=== PATIENT | female | born 1955 | race Caucasian/White ===

== ENCOUNTER → 2018-04-25 15:19 | Outpatient (CLI) | payer OTHER, SELFPAY ==
--- NOTE | 2018-04-25 | DI.MG.S_ITS ---
BILATERAL DIGITAL SCREENING MAMMOGRAM 3D/2D WITH CAD: 04/25/2018 CLINICAL: Routine screening. Comparison is made to exams dated: 01/04/2017 mammogram, 09/16/2014 mammogram, and 09/11/2013 mammogram - [facility]. The tissue of both breasts is heterogeneously dense. This may lower the sensitivity of mammography. Current study was also evaluated with a Computer Aided Detection (CAD) system. There is irregular equal density architectural distortion with an indistinct margin in the left breast central to the nipple anterior depth. No other significant masses, calcifications, or other findings are seen in either breast. IMPRESSION: INCOMPLETE: NEEDS ADDITIONAL IMAGING EVALUATION The irregular equal density architectural distortion in the left breast is indeterminate. Mediolateral and spot compression views as well as additional views with possible ultrasound are recommended. This exam was interpreted at Station ID: [id number]. NOTE: For mammograms, a report in lay terms will be sent to the patient. Approximately 15% of breast malignancies will not be visualized mammographically. In the management of a palpable breast mass, a negative mammogram must not discourage biopsy of a clinically suspicious lesion. Electronically Signed By: Kwadwo suarez/liz:04/25/2018 19:52:27 letter sent: Additional Imaging Needed ACR BI-RADS Category 0: Incomplete 3340F
== END ==
PROVIDERS: PCP Physician Assistant; Visit Provider Physician Assistant
DX: Z12.31 Encounter for screening mammogram for malignant neoplasm of breast (principal)
CPT/HCPCS: 77063; 77067

== ENCOUNTER → 2018-05-08 07:28 | Outpatient (CLI) | payer OTHER, SELFPAY ==
--- NOTE | 2018-05-08 | DI.MG.S_ITS ---
UNILATERAL LEFT DIGITAL DIAGNOSTIC MAMMOGRAM 3D/2D WITH ADDITIONAL VIEWS: 05/08/2018 CLINICAL: Additional evaluation requested from prior study. Comparison is made to exams dated: 04/25/2018 mammogram, 01/04/2017 mammogram, and 09/16/2014 mammogram - [facility]. The tissue of the left breast is heterogeneously dense. This may lower the sensitivity of mammography. Previously identified possible irregular equal density architectural distortion in the left breast central to the nipple anterior depth on comparison screening mammograms resolves with additional views. No significant masses, calcifications, or other findings are seen in the breast. IMPRESSION: INCOMPLETE: NEEDS ADDITIONAL IMAGING EVALUATION Previously identified possible irregular equal density architectural distortion in the left breast central to the nipple anterior depth on comparison screening mammograms resolves with additional views. A targeted ultrasound is recommended for further evaluation, and will be performed immediately following this exam. This exam was interpreted at Station ID: [id number]. NOTE: For mammograms, a report in lay terms will be sent to the patient. Approximately 15% of breast malignancies will not be visualized mammographically. In the management of a palpable breast mass, a negative mammogram must not discourage biopsy of a clinically suspicious lesion. Electronically Signed By: Nils Crum M.D. ecl/:05/08/2018 09:00:23 letter sent: Additional Imaging Needed ACR BI-RADS Category 0: Incomplete 3340F
--- NOTE | 2018-05-08 | DI.US.S_ITS ---
ULTRASOUND OF LEFT BREAST: 05/08/2018 CLINICAL: Patient returns today to evaluate a possible distortion in the left breast. Comparison is made to exams dated: 05/08/2018 mammogram, 04/25/2018 mammogram, 01/04/2017 mammogram, and 09/16/2014 mammogram - [facility]. Real-time and Doppler ultrasound of the left breast were performed. Ibarra scale images of the real-time examination were reviewed. Targeted ultrasound was performed of the left breast central to the nipple. No underlying breast mass or abnormality is identified. There is no ultrasound correlate for the previously identified possible architectural distortion in the left breast central to the nipple on comparison screening mammograms that resolved with additional diagnostic views. IMPRESSION: NEGATIVE No sonographic or mammographic evidence of malignancy in the imaged left breast. Return to annual screening mammography is recommended, next due in April 2019. The patient is advised to monitor her breasts and to return sooner for re-evaluation should anything grow or change. This exam was interpreted at Station ID: [id number]. Electronically Signed By: Nils Crum M.D. ecl/:05/08/2018 09:09:22 letter sent: Normal Exam Ultrasound BI-RADS: 1 Negative
== END ==
PROVIDERS: PCP Physician Assistant; Visit Provider Physician Assistant
DX: R92.8 Other abnormal and inconclusive findings on diagnostic imaging of breast (principal)
CPT/HCPCS: 76642; 77065; G0279

== ENCOUNTER → 2019-05-29 11:40 | Outpatient (CLI) | payer OTHER, SELFPAY ==
--- NOTE | 2019-05-29 | DI.RAD.S_ITS ---
PROCEDURE: XR LUMBAR SPINE 2-3V INDICATIONS: LOW BACK PAIN TECHNIQUE: 2 views of the lumbar spine were acquired. COMPARISON: None. FINDINGS: Bones: 5 [id number] vertebrae are present. There is normal bony alignment. No vertebral body compression fractures. No suspicious bony lesions. There is a moderate degree of degenerative disc disease at L5-S1 with a similar degree of facet osteoarthritis at L4-5 and especially L5-S1. Spinal and foraminal stenosis at the lower third of the lumbosacral spine may be present and therefore followup by MR scanning may be warranted. Soft tissues: Overlying bowel gas pattern is normal. No suspicious soft tissue calcifications. IMPRESSION: L4-L5 relatively mild degenerative disc disease and mild to moderate facet osteoarthritis. L5-S1 moderate degenerative disc disease and facet osteoarthritis to the degree that inal and foraminal stenosis may be associated. Dictated by: Marlon Elizalde M.D. on 05/29/2019 at 13:23 Approved by: Marlon Elizalde M.D. on 05/29/2019 at 13:24
== END ==
PROVIDERS: PCP Student in an Organized Health Care Education/Training Program; Visit Provider Chiropractor
DX: M54.5 Low back pain (principal); M99.09 Segmental and somatic dysfunction of abdomen and other regions; M51.36 Other intervertebral disc degeneration, lumbar region; M51.37 Other intervertebral disc degeneration, lumbosacral region; M47.816 Spondylosis without myelopathy or radiculopathy, lumbar region; M47.817 Spondylosis without myelopathy or radiculopathy, lumbosacral region
CPT/HCPCS: 72100

== ENCOUNTER → 2019-06-06 12:55 | Outpatient (CLI) | payer OTHER, SELFPAY ==
--- NOTE | 2019-06-06 | DI.MG.S_ITS ---
BILATERAL DIGITAL SCREENING MAMMOGRAM 3D/2D WITH CAD: 06/06/2019 CLINICAL: Routine screening. Comparison is made to exams dated: 04/25/2018 mammogram, 01/04/2017 mammogram, 08/29/2013 mammogram, 08/22/2010 mammogram, 05/08/2018 mammogram, and 09/16/2014 mammogram - [facility]. The tissue of both breasts is heterogeneously dense. This may lower the sensitivity of mammography. Current study was also evaluated with a Computer Aided Detection (CAD) system. There is a biopsy clip in the left breast. No significant masses, calcifications, or other findings are seen in either breast. There has been no significant interval change. IMPRESSION: NEGATIVE There is no mammographic evidence of malignancy. A 1 year screening mammogram is recommended. This exam was interpreted at Station ID: [id number]. NOTE: For mammograms, a report in lay terms will be sent to the patient. Approximately 15% of breast malignancies will not be visualized mammographically. In the management of a palpable breast mass, a negative mammogram must not discourage biopsy of a clinically suspicious lesion. Electronically Signed By: Surya wolf/liz:06/06/2019 14:41:43 letter sent: Normal Exam ACR BI-RADS Category 1: Negative [id number]
== END ==
PROVIDERS: PCP Student in an Organized Health Care Education/Training Program; Visit Provider Student in an Organized Health Care Education/Training Program
DX: Z12.31 Encounter for screening mammogram for malignant neoplasm of breast (principal)
CPT/HCPCS: 77063; 77067

== ENCOUNTER → 2020-06-08 11:02 | Outpatient (CLI) | payer OTHER, SELFPAY ==
--- NOTE | 2020-06-08 | DI.MG.S_ITS ---
BILATERAL DIGITAL SCREENING MAMMOGRAM 3D/2D WITH CAD: 06/08/2020 CLINICAL: Routine screening. Comparison is made to exams dated: 06/06/2019 mammogram, 05/08/2018 mammogram, and 04/25/2018 mammogram - [facility]. The tissue of both breasts is heterogeneously dense. This may lower the sensitivity of mammography. Current study was also evaluated with a Computer Aided Detection (CAD) system. There is a biopsy clip in the left breast. No significant masses, calcifications, or other findings are seen in either breast. There has been no significant interval change. IMPRESSION: NEGATIVE There is no mammographic evidence of malignancy. A 1 year screening mammogram is recommended. This exam was interpreted at Station ID: [id number]. NOTE: For mammograms, a report in lay terms will be sent to the patient. Approximately 15% of breast malignancies will not be visualized mammographically. In the management of a palpable breast mass, a negative mammogram must not discourage biopsy of a clinically suspicious lesion. Electronically Signed By: Rafa sawant/liz:06/08/2020 17:01:32 letter sent: Normal Exam ACR BI-RADS Category 1: Negative [id number]
== END ==
PROVIDERS: PCP Student in an Organized Health Care Education/Training Program; Referring Provider Student in an Organized Health Care Education/Training Program; Visit Provider Student in an Organized Health Care Education/Training Program
DX: Z12.31 Encounter for screening mammogram for malignant neoplasm of breast (principal)
CPT/HCPCS: 77063; 77067

== ENCOUNTER → 2021-06-21 10:06 | Outpatient (CLI) | payer OTHER, SELFPAY ==
--- NOTE | 2021-06-21 | DI.MG.S_ITS ---
BILATERAL DIGITAL SCREENING MAMMOGRAM 3D/2D WITH CAD: 06/21/2021 CLINICAL: Routine screening. Comparison is made to exams dated: 06/08/2020 mammogram, 06/06/2019 mammogram, and 05/08/2018 mammogram - [facility]. The tissue of both breasts is heterogeneously dense. This may lower the sensitivity of mammography. Current study was also evaluated with a Computer Aided Detection (CAD) system. There is a biopsy clip in the left breast. No significant masses, calcifications, or other findings are seen in either breast. There has been no significant interval change. IMPRESSION: NEGATIVE There is no mammographic evidence of malignancy. A 1 year screening mammogram is recommended. This exam was interpreted at Station ID: [id number]. NOTE: For mammograms, a report in lay terms will be sent to the patient. Approximately 15% of breast malignancies will not be visualized mammographically. In the management of a palpable breast mass, a negative mammogram must not discourage biopsy of a clinically suspicious lesion. Electronically Signed By: Rafa sawant/liz:06/21/2021 10:38:18 letter sent: Normal Exam ACR BI-RADS Category 1: Negative [id number]
== END ==
PROVIDERS: PCP Student in an Organized Health Care Education/Training Program; Referring Provider Student in an Organized Health Care Education/Training Program; Visit Provider Student in an Organized Health Care Education/Training Program
DX: Z12.31 Encounter for screening mammogram for malignant neoplasm of breast (principal)
CPT/HCPCS: 77063; 77067

== ENCOUNTER 2021-10-16 04:33 | Emergency (ER) | payer OTHER, SELFPAY ==
[2021-10-16] VITALS (7 sets, daily range): BP systolic 151–188; BP diastolic 75–86; PULSE 63–84; RESP 16; TEMP 35.7; O2SAT 98–100; BMI 311.1
--- NOTE | 2021-10-16 04:54 | ED.HA ---
HPI - Headache General Chief Complaint: Hypertension Stated Complaint: Blood pressure elevated/ringing/headache today Time Seen by Provider: 10/16/21 04:36 Mode of arrival: Ambulatory History of Present Illness HPI Narrative: 66F nonsmoker without chronic medical problems presents with her in the chief complaint of waking up this morning a few hours prior to arrival with a mild headache and some ringing in her ears. She took her blood pressure and found it to be elevated in the 160s, she took a few aspirin, read a book and we checked and found to still be elevated. She decided to come to the emergency department to be evaluated. She denies any chest pain or shortness of breath. She denies nausea, vomiting or diarrhea. She denies any focal neurologic symptoms. She denies any recent change in diet, exercise or sleep habits. She denies any change in medications. Related Data Home Medications Medication Instructions Recorded Confirmed ASPIRIN (Aspirin Low Dose) 81 mg PO Q DAY #0 05/19/10 Multivitamins - 1 tab PO Q DAY #0 05/19/10 (-S) Vitamin E (Alpha-Tocopherol) #0 05/19/10 [BLACK KC ] #0 05/19/10 [BLACK COHOSH] #0 05/19/10 [COQ10] #0 05/19/10 [FLAX SEED OIL] #0 05/19/10 [IRON] #0 05/19/10 [RED RICE YEAST] #0 05/19/10 Previous Rx's Medication Instructions Recorded amlodipine 5 mg tablet 5 mg PO DAILY #30 tab 10/16/21 Allergies Allergy/AdvReac Type Severity Reaction Status Date / Time Sulfa (Sulfonamide Allergy Unknown Verified 10/16/21 05:50 Antibiotics) [SULFA (SULFONAMIDE ANTIBIOTICS)] Review of Systems Review of Systems Narrative: GENERAL: Denies chills, fatigue, malaise, fever, sweats. HEENT: Denies sinus pain, ear pain, sore throat, difficulty swallowing, dizziness. RESPIRATORY: Denies dyspnea, cough, wheezing, hemoptysis, sputum. CARDIOVASCULAR: Denies chest pain, palpitations, orthopnea, edema, GASTROINTESTINAL: Denies nausea, vomiting, abdominal pain, diarrhea, constipation, melena. : Denies dysuria, frequency, incontinence, hematuria, urinary retention. MUSCULOSKELETAL: denies weakness, joint pain, or bony pain SKIN: Denies rash, skin lesions, or other NEUROLOGIC: See HPI PSYCHIATRIC: No concerning psychosocial issues. 12 point review of systems is negative except for those stated above Patient History Social History Smoking Status: Never smoker Smoking Status: Never smoker Alcohol type: wine Substance Use Type: does not use Exam Narrative Exam Narrative: GENERAL: [66] year old patient appears stated age. Well-developed patient, in mild distress. HEAD: Atraumatic. Normocephalic. EYES: Pupils equal round and reactive. Extraocular motions intact. No scleral icterus. No injection or drainage. ENT: Nose without bleeding, purulent drainage. Throat without erythema, tonsillar hypertrophy or exudate. Airway patent. NECK: Trachea midline. Non tender CARDIOVASCULAR: Regular rate and rhythm without murmurs, gallops, or rubs. RESPIRATORY: Clear to auscultation. Breath sounds equal bilaterally. No wheezes, rales, or rhonchi. GASTROINTESTINAL: Abdomen soft, non-tender, nondistended. EXTREMITIES: No edema or joint tenderness. BACK: Nontender without deformity or crepitance. No flank tenderness. NEURO: AOx3. SKIN: No rash or erythema of visible areas Initial Vital Signs Initial Vital Signs: Vital Signs Pulse Rate 84 10/16/21 04:41 Blood Pressure 188/86 H 10/16/21 04:41 Pulse Oximetry 98 10/16/21 04:41 Course Orders Ordered: Discontinued Medications Amlodipine Besylate (Amlodipine 5 Mg Tablet) 5 mg PO NOW ONE Stop: 10/16/21 05:45 Last Admin: 10/16/21 05:50 Dose: 5 mg Documented by: NI Vital Signs Vital signs: Vital Signs - 8 hr 10/16/21 04:43 Temperature 96.2 F L Pulse Rate 84 Respiratory Rate 16 Blood Pressure 188/86 H Pulse Oximetry 98 MDM - Headache Lab Data Result diagrams: 10/16/21 05:10 10/16/21 05:10 Labs: Lab Results 10/16/21 10/16/21 Range/Units 05:10 05:10 WBC 6.2 (4.5-11.0) X10^3/uL RBC 4.83 (4.0-5.2) X10^6/uL Hgb 13.9 (12.0-16.0) g/dL Hct 41.5 (36-46) % MCV 86.0 (80-100) fL MCH 28.8 (26-34) PG MCHC 33.5 (30-36) % RDW 13.0 (11.6-14.8) % Plt Count 158 (150-400) X10^3/uL Neut % (Auto) 48.6 L (50-75) % Lymph % (Auto) 38.9 (25-40) % Green % (Auto) 9.7 (3-14) % Eos % (Auto) 1.9 L (2-4) % Baso % (Auto) 0.9 (0-2) % Neut # (Auto) 3000 (1759-8534) /uL Lymph # (Auto) 2400 (4553-5771) /uL Green # (Auto) 600 (0-900) /uL Eos # (Auto) 100 (0-450) /uL Baso # (Auto) 100 (0-100) /uL Sodium 138 (137-145) mmol/L Potassium 4.1 (3.4-5.1) mmol/L Chloride 106 (98-107) mmol/L Carbon Dioxide 30 (22-32) mmol/L BUN 15 (7-17) mg/dL Creatinine 0.75 (0.52-1.04) mg/dL Estimated GFR > 60.0 (>60) mL/min BUN/Creatinine Ratio 20.0 (6-22) Glucose 115 H (80-110) mg/dL Calcium 9.0 (8.4-10.2) mg/dL Total Bilirubin 0.5 (0.2-1.3) mg/dL AST 39 H (14-36) IU/L ALT 36 H (<35) IU/L Alkaline Phosphatase 68 (38-126) U/L Total Creatine Kinase 76 (30-135) U/L CK-MB (CK-2) TNP CK-MB (CK-2) Rel Index TNP Troponin I < 0.012 (0.01-0.034) ng/mL Total Protein 7.5 (6.3-8.2) g/dL Albumin 4.5 (3.5-5.0) g/dL Globulin 3.0 (1.7-4.1) g/dL Albumin/Globulin Ratio 1.5 (1.0-2.8) MDM Narrative Medical decision making narrative: Headache considerations include, but not limited to: Subarachnoid hemorrhage, but unlikely as patient denies sudden onset of pain, not worst of life, or neck pain Meningitis considered, but thought unlikely given lack of Brudzinski's, Kernig's sign, altered mental status or fever Giant cell arteritis considered, but thought unlikely given lack of unilateral findings, pain in roman catholic, vision change Other serious diagnoses considered unlikely given lack of red flag findings such as sudden onset, increasing frequency, immunocompromise, systemic signs (fever, chills, stiff neck, or rash), focal neurologic findings, trauma, blood thinners, etc. Discharge Plan Departure Patient Disposition: Home Clinical Impression: Hypertension Instructions: DI for High Blood Pressure Activity Restrictions/Additional Instructions: *You have been diagnosed with [high blood pressure] *What to do: *Please continue to take your regular medications as directed. [ ] New medication prescriptions sent to your pharmacy: [ ] [x ] New medication written as a paper prescription [ ] No new medications given *Please follow up with your primary care provider in 2-3 days, call for an appointment. Let them know you were seen in the Emergency Department and that we ask that you be seen in follow up. We will electronically transmit a record of today's note if your PCP is in our system *If you do not have a primary care provider please contact the [facility] Resource line at [phone]. They will ask some questions about your medical history and help get you set up with a doctor in the community. *Return to Emergency Department if you should have any new, worsening or concerning symptoms, such as [fever greater than 101 F, shaking chills, worsening pain, persistent vomiting or other bothersome symptoms] Prescriptions: New amlodipine 5 mg tablet 5 mg PO DAILY Qty: 30 0RF No Action Vitamin E (Alpha-Tocopherol) Qty: 0 0RF [BLACK KC ] Qty: 0 0RF [FLAX SEED OIL] Qty: 0 0RF ASPIRIN (Aspirin Low Dose) 81 mg PO Q DAY Qty: 0 0RF [COQ10] Qty: 0 0RF [RED RICE YEAST] Qty: 0 0RF Multivitamins - (-S) 1 tab PO Q DAY Qty: 0 0RF [IRON] Qty: 0 0RF [BLACK COHOSH] Qty: 0 0RF Referrals: Joseline Zamora PA-C [Primary Care Provider] -
[2021-10-16 05:37] LABS: Add Manual Diff / Slide Review NO; Basophils Absolute Auto 100 /uL (0-100); Basophils Percent Auto 0.9 % (0-2); Eosinophils Absolute Auto 100 /uL (0-450); Eosinophils Percent Auto 1.9 % (2-4); Hematocrit 41.5 % (36-46); Hemoglobin 13.9 g/dL (12.0-16.0); Lymphocytes Absolute Auto 2400 /uL (1100-4500); Lymphocytes Percent Auto 38.9 % (25-40); Mean Corpuscular HGB Conc 33.5 % (30-36); Mean Corpuscular Hemoglobin 28.8 PG (26-34); Monocytes Absolute Auto 600 /uL (0-900); Monocytes Percent Auto 9.7 % (3-14); Neutrophils Absolute Auto 3000 /uL (1500-7000); Neutrophils Percent Auto 48.6 % (50-75); Platelet Count 158 X10^3/uL (150-400); Red Blood Cell Count 4.83 X10^6/uL (4.0-5.2); White Blood Cell Count 6.2 X10^3/uL (4.5-11.0)
[2021-10-16 05:46] LABS: Alanine Aminotransferase 36 IU/L (<35); Albumin 4.5 g/dL (3.5-5.0); Albumin Globulin Ratio 1.5 (1.0-2.8); Alkaline Phosphatase 68 U/L (38-126); Aspartate Aminotransferase 39 IU/L (14-36); Bilirubin Total 0.5 mg/dL (0.2-1.3); Blood Urea Nitrogen 15 mg/dL (7-17); Carbon Dioxide 30 mmol/L (22-32); Chloride 106 mmol/L (98-107); Creatine Kinase 76 U/L (30-135); Estimated Glomerular Filt Rate > 60.0 mL/min (>60); Glucose 115 mg/dL (80-110); HEMOLYSIS < 15 (0-50); Potassium 4.1 mmol/L (3.4-5.1); Sodium 138 mmol/L (137-145); Total Protein 7.5 g/dL (6.3-8.2)
[2021-10-16] MEDS: AMLODIPINE 5 MG TABLET PO (05:50)
[2021-10-16 05:56] LABS: Troponin I < 0.012 ng/mL (0.01-0.034)
== END 2021-10-16 06:24 | disposition home or self-care (01) ==
PROVIDERS: Emergency Provider Emergency Medicine; PCP Physician Assistant
DX: I10 Essential (primary) hypertension (principal)
CPT/HCPCS: 36415; 80053; 82550; 84484; 85025; 93005; 99283; 99284

== ENCOUNTER 2022-04-24 15:39 | Observation (INO) | payer OTHER, SELFPAY ==
[2022-04-24] VITALS (11 sets, daily range): BP systolic 140–176; BP diastolic 66–81; PULSE 66–88; RESP 16–18; TEMP 35.9–37.2; O2SAT 96–100
--- NOTE | 2022-04-24 15:44 | DI.RAD.S_ITS ---
PROCEDURE: XR HAND RT MIN 3V INDICATIONS: right hand injury TECHNIQUE: 3 views of the hand acquired. COMPARISON: None. FINDINGS: Bones: There is an oblique fracture of the shaft of the 5th metacarpal with mild volar angulation. Soft tissues: No suspicious soft tissue calcifications. IMPRESSION: Oblique fracture of the 5th metacarpal shaft with mild volar angulation. Dictated by: Rafa Cesar M.D. on 04/24/2022 at 15:06 Approved by: Rafa Cesar M.D. on 04/24/2022 at 15:07
[2022-04-24] MEDS: TET,DIPH,PERTUSS(ACELL),VAC/PF 0.5 ML SYRINGE IM (15:56)
--- NOTE | 2022-04-24 16:22 | ED_ITS ---
HPI - Extremity Injury (Upper) General Chief Complaint: Extremity Injury, Upper Stated Complaint: Smashed right hand with chunck of wood Time Seen by Provider: 04/24/22 16:10 Source: patient Mode of arrival: Ambulatory History of Present Illness HPI narrative: This 67-year-old woman was working with cut pieces of Timber when a large log round hit her hand when it was up against another log. She had immediate severe pain in her right hand and ultimately came to the hospital for further evaluation. She denies any previous hand injuries. She does not take any dangerous medications. She is not injured elsewhere. Her tetanus immunization is not up-to-date. Related Data Home Medications Medication Instructions Recorded Confirmed ASPIRIN (Aspirin Low Dose) 81 mg PO Q DAY ##0 05/19/10 Multivitamins - 1 tab PO Q DAY ##0 05/19/10 (-S) Vitamin E (Alpha-Tocopherol) ##0 05/19/10 [BLACK KC ] ##0 05/19/10 [BLACK COHOSH] ##0 05/19/10 [COQ10] ##0 05/19/10 [FLAX SEED OIL] ##0 05/19/10 [IRON] ##0 05/19/10 [RED RICE YEAST] ##0 05/19/10 Previous Rx's Medication Instructions Recorded amlodipine 5 mg tablet 5 mg PO DAILY #30 tabs 10/16/21 morphine 15 mg immediate release 15 mg PO Q4H PRN pain #14 tabs 04/24/22 tablet Allergies Allergy/AdvReac Type Severity Reaction Status Date / Time Sulfa (Sulfonamide Allergy Unknown Verified 10/16/21 05:50 Antibiotics) [SULFA (SULFONAMIDE ANTIBIOTICS)] Review of Systems Review of Systems Narrative: Complete review of systems is negative other than as noted above. Patient History Social History Smoking Status: Never smoker Smoking Status: Never smoker Alcohol type: wine Substance Use Type: does not use Exam Narrative Exam Narrative: GENERAL: Alert, cooperative and in no distress. HEAD: Atraumatic. Normocephalic. EYES: Sclera are clear without icterus. Extraocular movements are full. ENT: No rhinorrhea NECK: No visible abnormality RESPIRATORY: No respiratory distress GASTROINTESTINAL: Nondistended EXTREMITIES: Swelling and laceration over the distal dorsal aspect of the right hand fingers are not affected. Bony tenderness at the distal 5th metacarpal. NEURO: Nonfocal, normal speech SKIN: No rash or erythema of visible areas PSYCH: Normally oriented. Normal range of affect. Appropriate behavior Initial Vital Signs Initial Vital Signs: Vital Signs Temperature 98.1 F 04/24/22 15:45 Pulse Rate 75 04/24/22 15:45 Respiratory Rate 18 04/24/22 15:45 Blood Pressure 169/77 H 04/24/22 15:45 Pulse Oximetry 98 04/24/22 15:45 Oxygen Delivery Method 04/24/22 15:45 Course Orders Ordered: ED Orders 04/24/22 15:44 XR hand RT min 3V Stat Discontinued Medications Diphtheria/Tetanus/Acell Pertussis (Diph,Pertuss(Acell),Tet Vac/Pf 0.5 Ml Syringe) 0.5 ml IM .ONCE ONE Stop: 04/24/22 15:46 Last Admin: 04/24/22 15:53 Dose: Not Given Documented By: ROSIE Diphtheria/Tetanus/Acell Pertussis (Tet,Diph,Pertuss(Acell),Vac/Pf 0.5 Ml Syringe) 0.5 ml IM .ONCE ONE Stop: 04/24/22 15:54 Last Admin: 04/24/22 15:56 Dose: 0.5 ml Documented By: EB Vital Signs Vital signs: Vital Signs - 8 hr 04/24/22 15:45 Temperature 98.1 F Pulse Rate 75 Respiratory Rate 18 Blood Pressure 169/77 H Pulse Oximetry 98 Oxygen Delivery Method Room Air MDM - Extremity Injury (Upper) Imaging Data Extremity x-ray #1: Radiologist's Impression: IMPRESSION: Oblique fracture of the 5th metacarpal shaft with mild volar angulation. Dictated by: Rafa Cesar M.D. on 04/24/2022 at 15:06 Approved by: Rafa Cesar M.D. on 04/24/2022 at 15:07 [facility] Narrative Medical decision making narrative: Spoke with Dr. Lal from Orthopedics. She will come in and do a open reduction and washout and fixation. Tetanus toxoid is updated here in the ED. Discharge Plan Departure Patient Disposition: Admitted to Surgery Clinical Impression: Fracture metacarpal-open Qualifiers: Encounter type: initial encounter Metacarpal bone: fifth Metacarpal location: shaft Fracture alignment: displaced Laterality: right Qualified Code(s): S62.32 6B - Displaced fracture of shaft of fifth metacarpal bone, right hand, initial encounter for open fracture Admit Date/Time: 04/24/22 16:19 Admit Provider: Annamarie Juarez
--- NOTE | 2022-04-24 17:27 | P.HP_ITS ---
History of Present Illness History of Present Illness Date Patient Seen: 04/24/22 Time Patient Seen: 17:29 Date of Onset of Symptoms: 04/24/22 Chief complaint: Smashed right hand with chunck of wood Narrative: Patient is a eymrw-takg-dwgpczue 67-year-old female that was chopping wood today when another person past of the locking it smashed her right hand between that would and another of she had immediate pain in her right hand and there was a wound and bleeding. This happened approximately 3:00 p.m. patient then came to [facility] for evaluation. She was found to have a open oblique angulated right 5th metacarpal shaft fracture. She was indicated for surgical treatment of her open fracture. She has allergies to sulfa. No history of metal allergy. No problems with anesthesia in the past. Denies fevers chills nausea vomiting chest pain denies other injuries. Takes medication for high blood pressure and hyperlipidemia. Patient History Family & Social History Tobacco & Substance use: Smoking Status Never smoker Substance Use Type does not use Meds Home Medications and Allergies Home Medications Medication Instructions Recorded Confirmed Type ASPIRIN (Aspirin Low Dose) 81 mg PO Q DAY ##0 05/19/10 History Multivitamins - 1 tab PO Q DAY ##0 05/19/10 History (-S) Vitamin E (Alpha-Tocopherol) ##0 05/19/10 History [BLACK KC ] ##0 05/19/10 History [BLACK COHOSH] ##0 05/19/10 History [COQ10] ##0 05/19/10 History [FLAX SEED OIL] ##0 05/19/10 History [IRON] ##0 05/19/10 History [RED RICE YEAST] ##0 05/19/10 History amlodipine 5 mg tablet 5 mg PO DAILY #30 tabs 10/16/21 Rx morphine 15 mg immediate release 15 mg PO Q4H PRN pain #14 tabs 04/24/22 Rx tablet Allergies Allergy/AdvReac Type Severity Reaction Status Date / Time Sulfa (Sulfonamide Allergy Unknown Verified 10/16/21 05:50 Antibiotics) [SULFA (SULFONAMIDE ANTIBIOTICS)] Review of Systems Review of Systems Narrative: Ten point review of systems negative ROS: Yes All systems reviewed with the patient and are negative except as otherwise documented Exam Vital Signs (past 8 hours): - 04/24/22 15:45 Temperature 98.1 F Pulse Rate 75 Respiratory Rate 18 Blood Pressure 169/77 H Pulse Oximetry 98 Oxygen Delivery Method Room Air Oxygen Delivery Method Room Air Objective Imaging Right hand x-ray: My impression: Three views AP lateral oblique right hand demonstrate oblique fracture 5th metacarpal shaft fracture separate area of lucency in soft tissue consistent with wound or open fracture Radiologist's impression: Oblique fracture 5th metacarpal shaft with mild volar angulation Rafa Cesar MD Assessment & Plan Assessment and plan (1) Fracture metacarpal-open: Qualifiers: Encounter type: initial encounter Fracture alignment: displaced Laterality: right Metacarpal bone: fifth Metacarpal location: shaft Qualified Code(s): S62.326B - Displaced fracture of shaft of fifth metacarpal bone, right hand, initial encounter for open fracture Status: Acute Plan Right 5th metacarpal open fracture. Patient is indicated for operative debridement fixation of the open fracture. Plan will be IV antibiotics in the ER and then after surgery will be discharged on oral antibiotics. The risks and benefits of the procedure have been discussed with the patient and they have been given the opportunity to ask questions. The risks of surgery include but are not limited to infection, malunion, nonunion, persistence of pain, damage to nerves and blood vessels, posttraumatic arthritis, DVT, PE, cardiopulmonary complications and . The patient expressed a thorough understanding of the risks and benefits of surgery and has elected to proceed. Consent was signed. The site was marked COVID-19 COVID-19 status: Negative Time Spent With Patient Critical Care time: I spent a total of [] minutes of critical care time on this patient's care today; this time is exclusive of procedural time. Quality VTE Deep Vein Thrombosis/Pulmonary Embolism Present on Admission: No
[2022-04-24] MEDS: LACTATED RINGERS 1,000 ML 42 ML IV (18:13)
[2022-04-24 18:45] LABS: COVID19 -Nasal RAPID Negative (Negative)
[2022-04-24] MEDS: CEFAZOLIN VIAL 2 GM in SODIUM CHLORIDE 0.9% 100 ML IV (19:08)
--- NOTE | 2022-04-24 19:21 | SUR.OPER ---
Supine on padded OR bed, head on pillow, right arms secured on padded arm boards at <90 degrees abduction, left arm on arm table , legs uncrossed, safety belt at thigh, tape over blanket over lower legs.
[2022-04-24] MEDS: BUPIVACAINE 0.25% W/ EPI 30 ML VIAL INJ (19:26)
--- NOTE | 2022-04-24 19:39 | P.PCN_ITS ---
Procedures Date/Time Date of procedure: 04/24/22 Time of procedure: 18:45 Nerve Block Time out performed: Yes Local anesthetic used: other (12mL 0.5% Ropivacaine, 8mL 2% Lidocaine) Location of anesthetic used: interscalene Amount of anesthesia used (mL): 20 Nerve blocks: brachial plexus (interscalene) Procedure successful: Yes Patient tolerated procedure: well Complications: none Additional comments: Brachial plexus nerve block for post operative pain management. Risks and benefits discussed, including bleeding, infection, intravascular injection, nerve damage, block failure. Standard ASA monitors, NC O2. Pt supine. 1mg versed, 50mcg fentanyl. Chloroprep site preparation, sterile technique. Brachial plexus identified with US guidance, traced from supraclavicular to interscalene. 1mL 2% lidocaine skin wheal. 22g x 50mm Pajunk advanced with in- plane US guidance to brachial plexus. Negative aspiration. LA injected with intermittent negative aspiration. Good LA spread noted on US. No pain, no paraesthesia. Pt tolerated procedure well. Vital signs stable. To OR.
--- NOTE | 2022-04-24 20:55 | P.OP_ITS ---
Operative Date/Time/Diagnoses Date of procedure: 04/24/22 Time of procedure: 19:55 Pre-op diagnosis: Open right 5th metacarpal fracture s62.309b Post-op diagnosis: same Procedure & Clinicians Procedure: 1. Open reduction internal fixation right open 5th metacarpal fracture CPT code 97813 2. Debridement associated with open fracture since subcutaneous tissue muscle and fascia CPT code 33049 Same procedure as scheduled: Yes Indications: Patient is a 67-year-old imjqj-hpkf-rwsqsopo female that was chopping wood when she got her hand smashed between 2 pieces of wood. This created a wound and open 5th metacarpal fracture. She was indicated for operative fixation for irrigation debridement of the open fracture and fixation. The risks and benefits of the procedure have been discussed with the patient and given the opportunity to ask questions. The risks of surgery include but are not limited to infection, malunion, nonunion, persistence of pain, damage to nerves and blood vessels, posttraumatic arthritis, DVT, PE, cardiopulmonary complications and . The patient expressed a thorough understanding of the risks and benefits of surgery and has elected to proceed. Consent was signed. Surgeon: Annamarie Juarez Click Yes if Unassisted: Yes Anesthesia Type: General, Peripheral nerve block and Local (Peripheral nerve block was placed by the anesthesia team for postoperative pain control) Operative Notes Findings: Comminuted oblique 5th metacarpal fracture. 2 cm open wound centered obliquely over the 4th metacarpal head to the 5th metacarpal neck in the distal extent of the 5th metacarpal fracture. There was some miniscule debris noted within the open wound that was debrided. Skin subcutaneous tissue and fascia were debrided and excised. Fifth metacarpal fracture was exposed and reduced was held in alignment with K-wires in a 6 hole plate 2.7 from the Synthes mini frag set was fit to the fracture and secured with screws Closure Type: primary Specimen(s): none sent Prosthetic devices, grafts, tissues, transplants, or devices: Synthes mini frag plate 6 hole 2.7 plate and 2.7 cortical screws x4 (14 mm, 12 mm x3) Estimated Blood Loss (mL): 5 Blood products transfused: none Tourniquet time (min): 60 Procedure in detail: Patient was seen in the emergency room. The site of surgery was marked in the informed consent was signed. The patient was then brought back to the preoperative area where a preoperative nerve block was placed by the anesthesia team for postoperative pain control. The patient was then taken to the operative room and positioned supine on operative table. General anesthetic was administered. The right upper extremities placed on the hand table. The right upper extremities prepped and draped in the standard sterile fashion. A nonsterile brachial tourniquet was placed. SCDs were placed on the lower extremities. All bony prominences were padded. Formal time-out procedure was performed confirming the patient's side and site of surgery administration of appropriate preoperative antibiotic which 2 g of Ancef. All were in agreement. Attention turned to the right upper extremity exsanguination was completed with the Esmarch the tourniquet was raised to 250 mmHg. Attention was turned to the irrigation and debridement. There was a 2 cm dorsal laceration extending from the area of the 4th metacarpal head toward the 5th metacarpal neck obliquely. This was full-thickness a deep laceration expressing hematoma blood. This was ellipsed sized out excising sick skin subcutaneous tissue and fascia additional muscle was debrided. some small debris particles that were removed. Thorough irrigation was completed. Instruments were changed then attention was turned to the fracture fixation At this incision was then extended in a curved direction laterally and then longitudinally just lateral or ulnar to the 5th metacarpal for exposure of the fracture. It was noticed in the traumatic wound that there was partial laceration of the juncturae tendini, extensor tendons were otherwise intact. The comminuted oblique 5th metacarpal fracture was exposed. The set several long split. This was reduced with a retractors small reduction clamp and then held with 2 K-wires. Reduction was checked on mini C-arm fluoroscopy. Then a 6 hole 2.7 plate from the since these mini frag with fit to the bone this was then secured proximally and distally with 2 bicortical 2.7 cortical screws. Reduction and hardware alignment was checked on mini C-arm fluoroscopy in AP oblique and lateral planes was appropriate. A clinical rotation was normal with no evidence of malrotation or scissoring. Tourniquet was released. Hemostasis was achieved. At this point thorough irrigation was completed. The juncturae t endini was repaired with a 2 FiberWire. Deep tissues were closed with 2-0 Vicryl subcutaneous with 4-0 Monocryl and skin with 3-0 and 4-0 nylon suture. Sterile dressing with Xeroform gauze Webril and an ulnar gutter splint were applied. The patient was woken from anesthetic and taken to the recovery room in good condition. There no immediate complications from this procedure. All counts were correct. Complications: none Post-operative Condition: stable Disposition: PACU Plan for aftercare: Patient will be nonweightbearing on the upper extremity or (no using the hand greater than 2 lb). She will stay in the ulnar gutter splint. She will keep the splint dry. Will follow up in 2 weeks at which point sutures will be removed and a hand based ulnar gutter splint can be fabricated. Patient will start occupational therapy for gentle active and passive range of motion (6 pack hand exercises). Any time and not doing therapy exercises should wear splint. Will wear splint continuously except for exercises for 6 weeks postop then will wean out of splint and start strengthening
[2022-04-24] MEDS: OXYCODONE IR 5 MG TABLET PO (21:37)
--- NOTE | 2022-04-24 22:16 | SUR.PHASEII ---
04/24/22*Reviewed home care information packet with patient. Highlighted phone number for Dr Gill's office . Wide awake and alert. Meets criteria for discharge. csm unchanged to Rt UPpper extremitiy. see documents.. dressing cdi. iv out . assited with clothing. quiestions answered. iv out. po pain med given per request for discharge. pain 3-4 /10 to rt pinky-states remainder of arm numb and no control. Discussed block saftey. Denies nausea. iv out. 2199-Prepared to discharge. Sling readjusted to RUE. No change with CSM. paperwork, jewelery and cellpone with patient. 2204-Escorted to car by wheelcair by coworker with all belongings,etc.
--- NOTE | 2022-05-02 08:22 | PC.NURSE ---
Late Entry: Cefazolin infusion initiated 04/24 at 19:08 complete at 19:39.
== END 2022-04-24 22:05 | disposition home or self-care (01) ==
LOC: ED 16:27 → AC 17:05
PROVIDERS: Admitting Provider Orthopaedic Surgery Foot and Ankle Surgery; Emergency Provider Family Medicine Addiction Medicine; PCP Physician Assistant; Referring Provider Family Medicine Addiction Medicine; Visit Provider Orthopaedic Surgery Foot and Ankle Surgery
PROC: (CPT 28485; principal; 2022-04-24 18:45)
DX: S62.326B Displaced fracture of shaft of fifth metacarpal bone, right hand, initial encounter for open fracture (principal); W23.0XXA Caught, crushed, jammed, or pinched between moving objects, initial encounter; Y93.89 Activity, other specified; I10 Essential (primary) hypertension; Z20.822 Contact with and (suspected) exposure to COVID-19
CPT/HCPCS: 26615; 64415; 73130; 87635; 90471; 96365; 99283; C9803; G0378; 90715; J0690; J1100; J2250; J2405; J2704; J3010

== ENCOUNTER → 2022-08-31 08:03 | Outpatient (CLI) | payer OTHER, SELFPAY ==
--- NOTE | 2022-08-31 | DI.MG.S_ITS ---
BILATERAL DIGITAL SCREENING MAMMOGRAM 3D/2D WITH CAD: 08/31/2022 CLINICAL: Routine screening. Comparison is made to exams dated: 06/21/2021 mammogram, 06/08/2020 mammogram, and 06/06/2019 mammogram - [facility]. Both breasts are heterogeneously dense, which may obscure small masses (category c / 51-75% glandular tissue). Current study was also evaluated with a Computer Aided Detection (CAD) system. There is a biopsy clip in the left breast. No significant masses, calcifications, or other findings are seen in either breast. There has been no significant interval change. IMPRESSION: NEGATIVE There is no mammographic evidence of malignancy. A 1 year screening mammogram is recommended. Based on the Tyrer Cuzick model (a risk assessment model) the patient's lifetime risk is 9.5% and her 10 year risk is 4.8%. According to the ACR, ACS, and NCCN guidelines, an annual breast MRI exam along with mammogram is recommended if the patient's lifetime risk is 20% or greater. This exam was interpreted at Station ID: [id number]. NOTE: For mammograms, a report in lay terms will be sent to the patient. Approximately 15% of breast malignancies will not be visualized mammographically. In the management of a palpable breast mass, a negative mammogram must not discourage biopsy of a clinically suspicious lesion. Electronically Signed By: Justice Heard M.D., jr/liz:08/31/2022 12:52:57 letter sent: Normal Exam ACR BI-RADS Category 1: Negative [id number]
== END ==
PROVIDERS: PCP Physician Assistant; Referring Provider Physician Assistant; Visit Provider Physician Assistant
DX: Z12.31 Encounter for screening mammogram for malignant neoplasm of breast (principal)
CPT/HCPCS: 77063; 77067

== ENCOUNTER 2022-11-11 06:55 | Emergency (ER) | payer OTHER, SELFPAY ==
[2022-11-11] VITALS (9 sets, daily range): BP systolic 136–176; BP diastolic 69–93; PULSE 65–90; RESP 16–25; TEMP 36.9; O2SAT 98–100; BMI 30.2
--- NOTE | 2022-11-11 07:19 | ED_ITS ---
HPI - Dizziness General Chief Complaint: Dizziness Stated Complaint: Diziness Time Seen by Provider: 11/11/22 07:06 Source: patient Mode of arrival: Ambulatory History of Present Illness HPI Narrative: Patient is a 67-year-old female history of hypertension but no longer taking amlodipine presenting today with some dizziness. She reports that she is had vertigo episodes in the past which have been resolved please maneuver. She reports this morning she woke up she had difficulty ambulating she felt this was different than her previous vertigo. She denies any nausea vomiting numbness tingling weakness chest pain or palpitations. However the dizziness is worse with position. She denies any headache fever or chills. Related Data Home Medications Medication Instructions Recorded Confirmed ASPIRIN (Aspirin Low Dose) 81 mg PO Q DAY ##0 05/19/10 Multivitamins - 1 tab PO Q DAY ##0 05/19/10 (-S) Vitamin E (Alpha-Tocopherol) ##0 05/19/10 [BLACK KC ] ##0 05/19/10 [BLACK COHOSH] ##0 05/19/10 [COQ10] ##0 05/19/10 [FLAX SEED OIL] ##0 05/19/10 [IRON] ##0 05/19/10 [RED RICE YEAST] ##0 05/19/10 Previous Rx's Medication Instructions Recorded amlodipine 5 mg tablet 5 mg PO DAILY #30 tabs 10/16/21 cephalexin 500 mg capsule 500 mg PO QID #20 caps 04/24/22 oxycodone 5 mg tablet 5 mg PO Q4H PRN pain #24 tabs 04/24/22 Allergies Allergy/AdvReac Type Severity Reaction Status Date / Time Sulfa (Sulfonamide Allergy Unknown Verified 10/16/21 05:50 Antibiotics) [SULFA (SULFONAMIDE ANTIBIOTICS)] Review of Systems Review of Systems ROS Unobtainable: All systems reviewed & are unremarkable except as noted in HPI and below Patient History Social History Smoking Status: Never smoker Smoking Status: Never smoker Alcohol type: wine Substance Use Type: does not use Exam Initial Vital Signs Initial Vital Signs: Vital Signs Temperature 98.4 F 11/11/22 07:08 Pulse Rate 90 11/11/22 07:08 Respiratory Rate 16 11/11/22 07:08 Blood Pressure 176/93 H 11/11/22 07:08 Pulse Oximetry 98 11/11/22 07:08 Oxygen Delivery Method Room Air 11/11/22 07:08 GENERAL: Alert well-appearing 67-year-old female and in no acute distress. HEENT: Head atraumatic,EOMI, pupils reactive, no nystagmus face symmetric, moist mucous membranes CARDIOVASCULAR: Regular rate and rhythm without murmurs, rubs or gallops. RESPIRATORY: Breath sounds equal bilaterally, no wheezes rales or rhonchi. ABDOMEN: Soft, nontender. Normoactive bowel sounds all 4 quadrants. No guarding or rebound. EXTREMITIES: Normal range of motion, no clubbing or edema. Neurovascularly intact NEUROLOGICAL: Alert and oriented x4.Normal gait and speech. Cranial nerves II through XII grossly intact. Good [id number], good seih-rv-ssem, strength equal bilaterally, no dysarthria or aphasia, sensation in tact to soft touch eddie aterally, no visual changes, no facial droop SKIN: Warm, dry, no laceration, no petechiae, no rashes or lesions. Scores NIH Stroke Scale Level of Conciousness: Alert, keenly responsive Ask month/age: Answers both questions correctly. Open/close eyes, close hand: Performs both tasks correctly Best gaze horizontal: Normal Visual jeffries: No visual loss Facial palsy: Normal symetrical movement Left arm drift: No drift for full 10 sec Right arm drift: No drift for full 10 sec Left leg drift: No drift for full 5 sec Right leg drift: No drift for full 5 sec Limb ataxia: Absent Sensory on face/arms/legs: Normal, no sensory loss Best language: No aphasia, normal Dysarthria: Normal Extinction or inattention: No abnormality Total NIH Stroke scale score: 0 Course Orders Ordered: ED Orders 11/11/22 07:11 Complete Blood Count AUTO DIFF Stat Comprehensive Metabolic Panel Stat Lipase Stat Magnesium Stat PTT Partial Thromboplastin Riaz Stat Prothrombin Time INR Stat Troponin & CK Cardiac Panel Stat 11/11/22 07:19 XR chest 1V Stat EKG-12 Lead Stat Discontinued Medications Sodium Chloride (Normal Saline 0.9%) 1,000 mls @ 1,000 mls/hr IV BOLUS ONE Stop: 11/11/22 08:27 Last Admin: 11/11/22 07:39 Dose: 1,000 mls/hr Documented By: AT Meclizine HCl (Meclizine Hcl 12.5 Mg Tablet) 25 mg PO NOW ONE Stop: 11/11/22 07:29 Last Admin: 11/11/22 07:39 Dose: 25 mg Documented By: AT Vital Signs Vital signs: Vital Signs - 8 hr 11/11/22 07:08 11/11/22 07:15 11/11/22 07:20 Temperature 98.4 F Pulse Rate 90 84 81 Respiratory Rate 16 18 16 Blood Pressure 176/93 H 164/74 H Pulse Oximetry 98 99 98 Oxygen Delivery Method Room Air Room Air 11/11/22 07:30 11/11/22 07:30 11/11/22 07:45 Temperature Pulse Rate 78 68 Respiratory Rate 18 16 Blood Pressure 153/74 H Pulse Oximetry 99 98 Oxygen Delivery Method Room Air 11/11/22 07:45 11/11/22 08:00 11/11/22 08:00 Temperature Pulse Rate 65 Respiratory Rate 21 Blood Pressure 136/69 139/72 Pulse Oximetry 99 Oxygen Delivery Method 11/11/22 08:15 11/11/22 08:15 11/11/22 08:30 Temperature Pulse Rate 65 Respiratory Rate 22 Blood Pressure 139/71 147/79 H Pulse Oximetry 99 Oxygen Delivery Method Room Air 11/11/22 08:30 11/11/22 08:45 11/11/22 08:45 Temperature Pulse Rate 69 76 Respiratory Rate 25 H 20 Blood Pressure 152/83 H Pulse Oximetry 100 100 Oxygen Delivery Method Room Air MDM - Dizziness Lab Data 11/11/22 07:11 11/11/22 07:11 Labs: Lab Results 11/11/22 11/11/22 11/11/22 Range/Units 07:11 07:11 07:11 WBC 7.2 (4.5-11.0) X10^3/uL RBC 4.68 (4.0-5.2) X10^6/uL Hgb 13.7 (12.0-16.0) g/dL Hct 41.0 (36-46) % MCV 87.5 (80-100) fL MCH 29.3 (26-34) PG MCHC 33.4 (30-36) % RDW 13.6 (11.6-14.8) % Plt Count 174 (150-400) X10^3/uL Neut % (Auto) 41.8 L (50-75) % Lymph % (Auto) 44.3 H (25-40) % [place] % (Auto) 9.6 (3-14) % Eos % (Auto) 2.8 (2-4) % Baso % (Auto) 1.5 (0-2) % Neut # (Auto) 3000 (9481-7047) /uL Lymph # (Auto) 3200 (0426-4691) /uL [place] # (Auto) 700 (0-900) /uL Eos # (Auto) 200 (0-450) /uL Baso # (Auto) 100 (0-100) /uL PT 10.1 (10.1-12.7) SECONDS INR 0.9 (0.9-1.3) APTT 30 (26-36) SECONDS Sodium 137 (137-145) mmol/L Potassium 3.8 (3.4-5.1) mmol/L Chloride 102 (98-107) mmol/L Carbon Dioxide 27 (22-32) mmol/L BUN 15 (7-17) mg/dL Creatinine 0.78 (0.52-1.04) mg/dL Estimated GFR > 60 (>60) mL/min BUN/Creatinine Ratio 19.2 (6-22) Glucose 110 (80-110) mg/dL Calcium 9.1 (8.4-10.2) mg/dL Magnesium 1.8 (1.6-2.3) mg/dL Total Bilirubin 0.4 (0.2-1.3) mg/dL AST 38 H (14-36) IU/L ALT 36 H (<35) IU/L Alkaline Phosphatase 92 (38-126) U/L Total Creatine Kinase 73 (30-135) U/L CK-MB (CK-2) TNP CK-MB (CK-2) Rel Index TNP Troponin I < 0.012 (0.01-0.034) ng/mL Total Protein 7.6 (6.3-8.2) g/dL Albumin 4.4 (3.5-5.0) g/dL Globulin 3.2 (1.7-4.1) g/dL Albumin/Globulin Ratio 1.4 (1.0-2.8) Lipase 89 (23-300) U/L Imaging Data Chest x-ray: Radiologist's Impression: PROCEDURE:? XR CHEST 1V ? INDICATIONS:? chest pain ? TECHNIQUE:? One view of the chest was acquired.? ? COMPARISON:? None. ? FINDINGS:? ? Surgical changes and devices:? None.? ? Lungs and pleura:? Lungs are clear.? No pleural effusions or pneumothorax.? ? Mediastinum:? Mediastinal contours appear normal.? Heart size is normal.? ? Bones and chest wall:? No suspicious bony lesions.? Overlying soft tissues appear unremarkable.? ? IMPRESSION:? No acute cardiopulmonary abnormality. ? ? ? Approved by: Rafa Cesar M.D. on 11/11/2022 at 7:40? ECG Data Interpretation: Normal sinus rhythm rate 87 SD interval 56 QRS 114 QTC 490 new left bundle Normal sinus rhythm rate 70 SD interval 158 QRS 76 QTC 451 similar to all previous EKGs except the ones left bundle which had lead placement issues MDM Narrative Medical decision making narrative: Patient 67-year-old female with history of vertigo presenting today with dizziness. She is no nausea or vomiting no focal deficits NIH stroke scale is 0. Blood work is overall reassuring. She is given fluids and meclizine in his feeling better. EKG does show probable left bundle-branch which is new from previous she reports that she would an EKG last week at her PCP and it was normal. I think this is lead placement repeat EKG shows a normal sinus rhythm without any evidence of a left bundle. She is absolutely no chest pain palpitations troponin is negative. Electrolytes are within limits no leukocytosis. This is unlikely to be related to her symptoms today Patient has a history of vertigo Shahzad maneuvers generally work for her. She is offered meclizine but she reports that she has things at home. She is feeling better. Discharge Plan Departure Patient Disposition: Home Clinical Impression: Vertigo Instructions: DI for Vertigo Activity Restrictions/Additional Instructions: *You have been diagnosed with vertigo *What to do: At this time I recommend the ED or Shahzad maneuvers rest today. *Continue to take medications as directed *Follow up with your primary care provider in 2-3 days or call [phone] *Return to ER if you should have increasing dizziness headache vomiting numbness tingling weakness speech difficulty chest pain or any new, worsening or concerning symptoms Prescriptions: No Action Vitamin E (Alpha-Tocopherol) Qty: 0 [BLACK KC ] Qty: 0 [FLAX SEED OIL] Qty: 0 ASPIRIN (Aspirin Low Dose) 81 mg PO Q DAY Qty: 0 [COQ10] Qty: 0 [RED RICE YEAST] Qty: 0 Multivitamins - (-S) 1 tab PO Q DAY Qty: 0 [IRON] Qty: 0 [BLACK COHOSH] Qty: 0 amlodipine 5 mg tablet 5 mg PO DAILY Qty: 30 0RF cephalexin 500 mg capsule 500 mg PO QID Qty: 20 0RF oxycodone 5 mg tablet 5 mg PO Q4H PRN (Reason: pain) Qty: 24 0RF Rx Instructions: postop exempt Referrals: Joseline Zamora PA-C [Primary Care Provider] - Stand Alone Forms: Patient Portal/API
--- NOTE | 2022-11-11 07:19 | DI.RAD.S_ITS ---
PROCEDURE: XR CHEST 1V INDICATIONS: chest pain TECHNIQUE: One view of the chest was acquired. COMPARISON: None. FINDINGS: Surgical changes and devices: None. Lungs and pleura: Lungs are clear. No pleural effusions or pneumothorax. Mediastinum: Mediastinal contours appear normal. Heart size is normal. Bones and chest wall: No suspicious bony lesions. Overlying soft tissues appear unremarkable. IMPRESSION: No acute cardiopulmonary abnormality. Approved by: Rafa Cesar M.D. on 11/11/2022 at 7:40
[2022-11-11 07:28] LABS: Add Manual Diff / Slide Review NO; Basophils Absolute Auto 100 /uL (0-100); Basophils Percent Auto 1.5 % (0-2); Eosinophils Absolute Auto 200 /uL (0-450); Eosinophils Percent Auto 2.8 % (2-4); Hemoglobin 13.7 g/dL (12.0-16.0); Lymphocytes Absolute Auto 3200 /uL (1100-4500); Lymphocytes Percent Auto 44.3 % (25-40); Mean Corpuscular HGB Conc 33.4 % (30-36); Mean Corpuscular Hemoglobin 29.3 PG (26-34); Mean Corpuscular Volume 87.5 fL (80-100); Monocytes Absolute Auto 700 /uL (0-900); Monocytes Percent Auto 9.6 % (3-14); Neutrophils Absolute Auto 3000 /uL (1500-7000); Neutrophils Percent Auto 41.8 % (50-75); Platelet Count 174 X10^3/uL (150-400); Red Blood Cell Count 4.68 X10^6/uL (4.0-5.2); Red Cell Distribution Width 13.6 % (11.6-14.8); White Blood Cell Count 7.2 X10^3/uL (4.5-11.0)
[2022-11-11 07:31] LABS: INR 0.9 (0.9-1.3); Prothrombin Time 10.1 SECONDS (10.1-12.7)
[2022-11-11 07:34] LABS: PTT Partial Thromboplastin Tim 30 SECONDS (26-36)
[2022-11-11 07:36] LABS: Alanine Aminotransferase 36 IU/L (<35); Albumin 4.4 g/dL (3.5-5.0); Albumin Globulin Ratio 1.4 (1.0-2.8); Alkaline Phosphatase 92 U/L (38-126); Aspartate Aminotransferase 38 IU/L (14-36); BUN Creatinine Ratio 19.2 (6-22); Bilirubin Total 0.4 mg/dL (0.2-1.3); Blood Urea Nitrogen 15 mg/dL (7-17); Calcium 9.1 mg/dL (8.4-10.2); Carbon Dioxide 27 mmol/L (22-32); Chloride 102 mmol/L (98-107); Creatine Kinase 73 U/L (30-135); Estimated Glomerular Filt Rate > 60 mL/min (>60); Globulin 3.2 g/dL (1.7-4.1); Glucose 110 mg/dL (80-110); HEMOLYSIS 29 (0-50); Lipase 89 U/L (23-300); Magnesium 1.8 mg/dL (1.6-2.3); Potassium 3.8 mmol/L (3.4-5.1); Sodium 137 mmol/L (137-145); Total Protein 7.6 g/dL (6.3-8.2)
[2022-11-11] MEDS: SODIUM CHLORIDE 0.9% 1,000 ML 1000 ML IV (07:39)
[2022-11-11] MEDS: MECLIZINE HCL 12.5 MG TABLET 25 MG PO (07:39)
[2022-11-11 07:47] LABS: Troponin I < 0.012 ng/mL (0.01-0.034)
--- NOTE | 2022-11-11 08:57 | PC.NURSE ---
Pt ambulated with steady gait, denies dizziness or other symptoms.
== END 2022-11-11 08:59 | disposition home or self-care (01) ==
PROVIDERS: Emergency Provider Emergency Medicine; PCP Physician Assistant
DX: R42 Dizziness and giddiness (principal); R07.9 Chest pain, unspecified
CPT/HCPCS: 36415; 71045; 80053; 82550; 83690; 83735; 84484; 85025; 85610; 85730; 93005; 93010; 96360; 99284

== ENCOUNTER → 2023-04-03 13:58 | Outpatient (CLI) | payer OTHER, SELFPAY ==
--- NOTE | 2023-04-03 | DI.RAD.S_ITS ---
Bone Density Report Name: TIM HAMEED Age: 68 Sex: Female Ethnicity: White Date of : 1955 Indication: postmenopausal; screening for osteoporosis; Referring Provider: CLARISSA JOSÉ Study: Bone densitometry was performed. Exam Date: April 03, 2023 Accession number: [id number] Bone Density: Region BMD T-score Z-score Classification AP Spine(L1-L4) 0.840 -1.9 0.0 Osteopenia Femoral Neck (Left) 0.712 -1.2 0.4 Osteopenia Total Hip (Left) 0.936 0.0 1.3 Normal Femoral Neck (Right) 0.807 -0.4 1.3 Normal Total Hip (Right) 0.977 0.3 1.6 Normal Total Hip Mean 0.956 0.2 1.5 Normal World Health Organization criteria for BMD impression classify patients as: Normal (T-score at or above -1.0), Osteopenia (T-score between -1.0 and -2.5), or Osteoporosis (T-score at or below -2.5). 10-year Fracture Risk(1): Major Osteoporotic Fracture 8.5% Hip Fracture 0.8% Reported Risk Factors: [place] (), Neck BMD=0.712, BMI=30.2 (1) FRAX(R) Version 3.08. Fracture probability calculated for an untreated patient. Fracture probability may be lower if the patient has received treatment. Impression: The patient has low bone mass, based on the Total Spine T-score. The patient has an estimated ten-year risk of hip fracture of 0.8% and an estimated ten-year risk of major fracture of 8.5%, based on the WHO FRAX algorithm. Discussion: BONE DENSITY IS LOW AT ONE OR MORE SKELETAL SITES. This patient's lowest T-score is low at one or more skeletal sites. It meets the World Health Organization's (WHO) criteria for low bone mass (T-score between -1.0 and -2.5). The patient's 10-year risk of fracture as calculated by FRAX is less than the threshold where pharmacological therapy is recommended by the National Osteoporosis Foundation (NOF). However, all treatment decisions require clinical judgment and consideration of individual patient factors, including patient preferences, comorbidities, previous drug use, risk factors not captured in the FRAX model (e.g., frailty, falls, vitamin D deficiency, increased bone turnover, interval significant decline in bone density) and possible under or overestimation of fracture risk by FRAX. The patient should follow a healthful lifestyle (good nutrition with adequate calcium and vitamin D, and appropriate weight-bearing exercise). Follow-Up: Consider repeating this study in 2 to 3 years to reassess this patient's status, or sooner if there is some new clinical indication. Reported by: VAUGHN SARAVIA MD on 04/03/2023 2:43:00 PM.
== END ==
PROVIDERS: PCP Physician Assistant; Referring Provider Physician Assistant; Visit Provider Physician Assistant
DX: Z13.820 Encounter for screening for osteoporosis (principal); Z78.0 Asymptomatic menopausal state; M85.88 Other specified disorders of bone density and structure, other site
CPT/HCPCS: 77080

== ENCOUNTER → 2023-09-19 13:16 | Outpatient (CLI) | payer OTHER, SELFPAY ==
--- NOTE | 2023-09-19 | DI.MG.S_ITS ---
BILATERAL DIGITAL SCREENING MAMMOGRAM 3D/2D WITH CAD: 09/19/2023 CLINICAL: Routine screening. Comparison is made to exams dated: 08/31/2022 mammogram, 06/21/2021 mammogram, and 06/08/2020 mammogram - [facility]. Both breasts are heterogeneously dense, which may obscure small masses (category c / 51-75% glandular tissue). Current study was also evaluated with a Computer Aided Detection (CAD) system. There are benign calcifications in both breasts. There also is a biopsy clip in the left breast. No significant masses, calcifications, or other findings are seen in either breast. There has been no significant interval change. IMPRESSION: BENIGN There is no mammographic evidence of malignancy. A 1 year screening mammogram is recommended. Based on the Tyrer Cuzick model (a risk assessment model) the patient's lifetime risk is 9.1% and her 10 year risk is 4.8%. According to the ACR, ACS, and NCCN guidelines, an annual breast MRI exam along with mammogram is recommended if the patient's lifetime risk is 20% or greater. This exam was interpreted at Station ID: [id number]. NOTE: For mammograms, a report in lay terms will be sent to the patient. Approximately 15% of breast malignancies will not be visualized mammographically. In the management of a palpable breast mass, a negative mammogram must not discourage biopsy of a clinically suspicious lesion. Electronically Signed By: Harlan root/liz:09/19/2023 19:01:44 letter sent: Normal Exam ACR BI-RADS Category 2: Benign Finding(s) [id number]
== END ==
PROVIDERS: PCP Physician Assistant; Referring Provider Physician Assistant; Visit Provider Physician Assistant
DX: Z12.31 Encounter for screening mammogram for malignant neoplasm of breast (principal); R92.333 Mammographic heterogeneous density, bilateral breasts
CPT/HCPCS: 77063; 77067

== ENCOUNTER → 2025-01-26 10:09 | Outpatient (CLI) | payer MEDICARE, OTHER, SELFPAY | PROVIDERS: PCP Physician Assistant; Visit Provider Physician Assistant | DX: J02.9 Acute pharyngitis, unspecified (principal) | CPT/HCPCS: 87070 ==

== ENCOUNTER → 2025-01-28 11:25 | Outpatient (CLI) | payer MEDICARE, OTHER, SELFPAY ==
[2025-01-28 18:50] LABS: Add Manual Diff / Slide Review NO; Basophils Absolute Auto 100 /uL (0-100); Basophils Percent Auto 0.9 % (0-2); Eosinophils Absolute Auto 100 /uL (0-450); Eosinophils Percent Auto 2.2 % (2-4); Hematocrit 40.1 % (36-46); Hemoglobin 13.4 g/dL (12.0-16.0); Lymphocytes Absolute Auto 2100 /uL (1100-4500); Lymphocytes Percent Auto 37.4 % (25-40); Mean Corpuscular HGB Conc 33.4 % (30-36); Mean Corpuscular Hemoglobin 29.3 PG (26-34); Mean Corpuscular Volume 87.7 fL (80-100); Monocytes Absolute Auto 500 /uL (0-900); Monocytes Percent Auto 8.5 % (3-14); Neutrophils Absolute Auto 2900 /uL (1500-7000); Platelet Count 156 X10^3/uL (150-400); Red Blood Cell Count 4.57 X10^6/uL (4.0-5.2); Red Cell Distribution Width 13.1 % (11.6-14.8); White Blood Cell Count 5.7 X10^3/uL (4.5-11.0)
[2025-01-28 18:55] LABS: Alanine Aminotransferase 23 IU/L (<35); Albumin 4.5 g/dL (3.5-5.0); Albumin Globulin Ratio 1.8 (1.0-2.8); Alkaline Phosphatase 72 U/L (38-126); Aspartate Aminotransferase 36 IU/L (14-36); BUN Creatinine Ratio 18.2 (6-22); Bilirubin Total 0.9 mg/dL (0.2-1.3); Blood Urea Nitrogen 14 mg/dL (7-17); Calcium 9.5 mg/dL (8.4-10.2); Carbon Dioxide 26 mmol/L (22-32); Chloride 104 mmol/L (98-107); Cholesterol 282 mg/dL (140-199); Estimated Glomerular Filt Rate > 60 mL/min (>60); Globulin 2.5 g/dL (1.7-4.1); Glucose 102 mg/dL (70-99); HDL Cholesterol 72 mg/dL (40-60); HEMOLYSIS < 15 (0-50); LDL Cholesterol Calculated 191 mg/dL (<100); Potassium 4.2 mmol/L (3.4-5.1); Sodium 138 mmol/L (137-145); Triglycerides 96 mg/dL (35-150)
[2025-01-28 19:02] LABS: Hemoglobin A1C% w Est Avg Glu 5.5 % (4.0-6.0)
[2025-01-28 19:22] LABS: TSH w/ Reflex to FT4 1.43 uIU/mL (0.47-4.68)
[2025-01-29 15:14] LABS: Hep C Virus Ab w/Reflex Quant NEGATIVE s/c (NEGATIVE)
== END ==
PROVIDERS: PCP Physician Assistant; Visit Provider Physician Assistant
DX: Z13.1 Encounter for screening for diabetes mellitus (principal); Z13.6 Encounter for screening for cardiovascular disorders; Z12.11 Encounter for screening for malignant neoplasm of colon; Z11.59 Encounter for screening for other viral diseases; E78.00 Pure hypercholesterolemia, unspecified; I10 Essential (primary) hypertension; R74.8 Abnormal levels of other serum enzymes; Z79.899 Other long term (current) drug therapy
CPT/HCPCS: 80053; 80061; 83036; 84443; 85025; 86803